=== PATIENT | female | born 1995 | race Caucasian/White ===

== ENCOUNTER 2020-11-15 19:01 | Emergency (ER) | payer OTHER ==
[~2020-11-15] VITALS: Ht 157.5 cm; Wt 117.9 kg
[2020-11-15 19:02] VITALS: BP 150/82
[2020-11-15] MEDS ORDERED: METHOCARBAMOL500 M2 PO (19:35)
[2020-11-15] MEDS ORDERED: APAP W/CODEINE1 TA2 PO (19:35)
[2020-11-15] MEDS ORDERED: AMOXICILLIN875 MG PO (19:35)
[2020-11-15] MEDS ORDERED: IBUPROFEN 800800 M1 PO (19:35)
== END 2020-11-15 20:02 | disposition home or self-care (01) ==
LOC: ER 19:01
DX: S39.012A Strain of muscle, fascia and tendon of lower back, initial encounter (principal); Z88.1 Allergy status to other antibiotic agents; Z88.2 Allergy status to sulfonamides; X50.0XXA Overexertion from strenuous movement or load, initial encounter; Y93.89 Activity, other specified; Y92.89 Other specified places as the place of occurrence of the external cause; Y99.0 Civilian activity done for income or pay